=== PATIENT | male | born 1985 | race Hispanic/Latino ===

== ENCOUNTER 2022-09-17 03:35 | Emergency (ER) | payer BC ==
[~2022-09-17] VITALS: Ht 177.8 cm; Wt 108.4 kg
[2022-09-17 03:41] VITALS: BP 187/118
== END 2022-09-17 05:57 | disposition left against medical advice (07) ==
LOC: EDH 03:35
DX: M54.2 Cervicalgia (principal); Z53.21 Procedure and treatment not carried out due to patient leaving prior to being seen by health care provider
CPT/HCPCS: 99281